=== PATIENT | female | born 2000 | race Caucasian/White ===

== ENCOUNTER 2022-01-08 13:35 | Inpatient (IN) | payer OTHER ==
[~2022-01-08] VITALS: Ht 154.9 cm; Wt 100.7 kg
[2022-01-08 14:44] LABS: HEMOGLOBIN 11.8 gm/dl (12.3-15.3); RED BLOOD COUNT 4.01 M/UL (4.00-5.10); WHITE BLOOD COUNT 12.6 K/UL (4.5-11.0)
[2022-01-08 15:04] LABS: BUN/CREATININE RATIO 16 (0-10)
[2022-01-08] MEDS ORDERED: PRENATAL VITAM1 EAC3 PO (15:15)
[2022-01-09] MEDS ORDERED: COLACE 100MG C100 MG PO (17:16)
[2022-01-09] MEDS ORDERED: IBUPROFEN800 MG PO (17:16)
[2022-01-09] MEDS ORDERED: HYDROCODON-ACE1 EAC2 PO (17:16)
[2022-01-10 06:11] LABS: HEMOGLOBIN 9.4 gm/dl (12.3-15.3)
[2022-01-10] MEDS ORDERED: FERROCITE324 MG PO (10:56)
== END 2022-01-11 17:40 | disposition home or self-care (01) | DRG 788 ==
LOC: GENOP 13:35 → OB 14:07
PROVIDERS: Obstetrics & Gynecology; ADMIT Obstetrics & Gynecology
PROC: 3E0234Z Introduction of Serum, Toxoid and Vaccine into Muscle, Percutaneous Approach (ICD-10-PCS; 2022-01-09)
PROC: 10D00Z1 Extraction of Products of Conception, Low, Open Approach (ICD-10-PCS; principal; 2022-01-09 17:25)
DX: O13.4 Gestational [pregnancy-induced] hypertension without significant proteinuria, complicating childbirth (principal); Z37.0 Single live birth; Z3A.38 38 weeks gestation of pregnancy; O99.820 Streptococcus B carrier state complicating pregnancy; O99.213 Obesity complicating pregnancy, third trimester; E66.9 Obesity, unspecified; O62.2 Other uterine inertia; O76 Abnormality in fetal heart rate and rhythm complicating labor and delivery; Z20.822 Contact with and (suspected) exposure to COVID-19; Z23 Encounter for immunization
CPT/HCPCS: 36415; 80053; 81001; 82570; 82800; 83615; 84156; 84550; 85014; 85018; 85025; 90715; C9113; J0690; J1170; J1940; J2250; J2274; J2370; J2405; J2540; J2590; J3010; J7070; J7120; U0002